=== PATIENT | male | born 1950 | race Caucasian/White ===

== ENCOUNTER 2024-07-14 08:11 | Inpatient (IN) | payer OTHER ==
[~2024-07-14] VITALS: Ht 177.8 cm; Wt 67.0 kg
[2024-07-14] VITALS (22 sets, daily range): BP systolic 105–142; BP diastolic 65–100
[2024-07-14] MEDS ORDERED: LACTATED RINGER'S 1,000 ML BAG IV ONE (08:24)
[2024-07-14] MEDS ORDERED: ROCURONIUM BROMIDE 10 MG/ML 5ML VIAL IV ONE (08:24)
[2024-07-14] MEDS ORDERED: SUGAMMADEX SODIUM 200 MG/2 ML SDV IV ONE (08:24)
[2024-07-14] MEDS ORDERED: KETOROLAC TROMETHAMINE 30 MG/ML SDV IV ONE (08:24)
[2024-07-14] MEDS ORDERED: SUCCINYLCHOLINE CHLORIDE 20 MG/ML 10ML VIAL IV ONE ×2 (08:24)
[2024-07-14] MEDS ORDERED: PROPOFOL 200 MG/20 ML VIAL IV ONE (08:24)
[2024-07-14] MEDS ORDERED: MORPHINE SULFATE 4 MG/ML VIAL IV ONE (08:30)
[2024-07-14] MEDS ORDERED: SODIUM CHLORIDE 0.9% 1,000 ML IV ONE (08:30)
[2024-07-14] MEDS ORDERED: ONDANSETRON HCl 4 MG/2 ML SDV IV ONE (08:30)
[2024-07-14 08:51] LABS: BASO% 0.2 % (0-3); HEMATOCRIT 48.4 % (39.0-50.0); HEMOGLOBIN 15.8 g/dl (14.0-18.0); IMMATURE GRANULOCYTES 0.3 % (0.0-5.0); LYMPH% 22.2 % (15-41); MEAN CELL VOLUME 100.2 fL CALC (80.0-100.0); MEAN CORPUSCULAR HGB 32.7 pG CALC (26.0-32.0); MEAN CORPUSCULAR HGB CONC 32.6 g/dL CAL (32.0-36.0); MONO% 11.2 % (2-13); NEUT# 6.46 thou/uL (1.82-7.42); NEUT% 65.1 % (42-76); RED BLOOD COUNT 4.83 mill/uL (4.70-6.10); RED CELL DISTRI WIDTH 12.3 % (11.5-15.5)
[2024-07-14] MEDS ORDERED: CIPROFLOXACN500 MG PO (09:02)
[2024-07-14] MEDS ORDERED: METRONIDAZOLE500 MG PO (09:03)
[2024-07-14 09:16] LABS: ALBUMIN 4.1 g/dL (3.2-5.0); CREATININE 0.9 mg/dL (0.7-1.3); POTASSIUM 3.8 mmol/l (3.5-5.1); TOTAL PROTEIN 6.8 g/dL (6.3-8.2)
[2024-07-14] MEDS ORDERED: HYDROmorphone HCL 2 MG/AMP IV ONE ×2 (10:05→11:10)
[2024-07-14] MEDS ORDERED: SODIUM CHLORIDE 0.9% 10 ML SYR ONE (12:08)
[2024-07-14] MEDS ORDERED: LACTATED RINGER'S 1,000 ML IV ONE ×3 (12:08→16:47)
[2024-07-14] MEDS ORDERED: FAMOTIDINE 10MG/ML 2ML SDV IV ONE (12:08)
[2024-07-14 12:14] LABS: URINE BILIRUBIN - DIPSTICK Negative (NEGATIVE); URINE BLOOD DIPSTICK Negative (NEGATIVE); URINE COLOR Yellow; URINE GLUCOSE - DIPSTICK Negative (NEGATIVE); URINE KETONE 80 mg/dL (NEGATIVE); URINE LEUK ESTERASE Negative (NEGATIVE); URINE NITRITE - DIPSTICK Negative (Negative); URINE PH 7.5 (4.5-8.0); URINE PROTEIN - DIPSTICK Trace mg/dL (NEG-TRACE); URINE UROBILINOGEN - DIPSTICK 0.2 E.U./dL (0.2)
[2024-07-14] MEDS ORDERED: HYDROmorphone HCL 2 MG/AMP IV PRN (12:55)
[2024-07-14] MEDS ORDERED: ONDANSETRON HCl 4 MG/2 ML SDV IV PRN (12:55)
[2024-07-14] MEDS ORDERED: ACETAMINOPHEN 650 MG SUP PR PRN (12:55)
[2024-07-14] MEDS ORDERED: BENZOCAINE-MENTHOL (MOUTH-THRO 1 LOZ LOZ MT PRN (12:55)
[2024-07-14] MEDS ORDERED: DEXTROSE IN LACTATED RINGERS 1,000 ML IV PRN (13:00)
[2024-07-14] MEDS ORDERED: ACETAMINOPHEN 100 ML IV ONE (16:07)
[2024-07-14] MEDS ORDERED: PIPERACILLIN Sodium-Tazobactam 3.375 GM in SODIUM CHLORIDE 0.9% 100 ML IV SCH (18:00)
[2024-07-15] VITALS (8 sets, daily range): BP systolic 93–122; BP diastolic 62–77
[2024-07-15 05:21] LABS: BASO% 0.1 % (0-3); EOS% 1.1 % (0-8); IMMATURE GRANULOCYTES 0.1 % (0.0-5.0); LYMPH% 16.4 % (15-41); MEAN CELL VOLUME 102.8 fL CALC (80.0-100.0); MEAN CORPUSCULAR HGB 33.2 pG CALC (26.0-32.0); MEAN CORPUSCULAR HGB CONC 32.3 g/dL CAL (32.0-36.0); MONO% 5.4 % (2-13); NEUT# 6.11 thou/uL (1.82-7.42); NEUT% 76.9 % (42-76); RED BLOOD COUNT 3.95 mill/uL (4.70-6.10); RED CELL DISTRI WIDTH 12.7 % (11.5-15.5)
[2024-07-15 05:24] LABS: HEMATOCRIT 40.6 % (39.0-50.0); HEMOGLOBIN 13.1 g/dl (14.0-18.0)
[2024-07-15 06:04] LABS: BILIRUBIN, TOTAL 0.9 mg/dL (0.2-1.3); CREATININE 0.8 mg/dL (0.7-1.3); POTASSIUM 3.5 mmol/l (3.5-5.1)
[2024-07-15 06:10] LABS: ALBUMIN 2.4 g/dL (3.2-5.0); TOTAL PROTEIN 4.5 g/dL (6.3-8.2)
[2024-07-15] MEDS ORDERED: LACTATED RINGER'S 1,000 ML IV PRN (09:50)
[2024-07-16] VITALS (11 sets, daily range): BP systolic 116–132; BP diastolic 67–82
[2024-07-16] MEDS ORDERED: Pantoprazole Sodium 40 MG VIAL (Protonix) IV SCH (11:00)
[2024-07-16 11:14] LABS: HEMOGLOBIN 11.3 g/dl (14.0-18.0); MEAN CELL VOLUME 103.6 fL CALC (80.0-100.0); MEAN CORPUSCULAR HGB 33.4 pG CALC (26.0-32.0); MEAN CORPUSCULAR HGB CONC 32.3 g/dL CAL (32.0-36.0); RED BLOOD COUNT 3.38 mill/uL (4.70-6.10); RED CELL DISTRI WIDTH 12.7 % (11.5-15.5)
[2024-07-16] MEDS ORDERED: ENOXAPARIN SODIUM 40 MG/0.4 ML SYR SC SCH (21:00)
[2024-07-17] VITALS (8 sets, daily range): BP systolic 126–139; BP diastolic 71–81
[2024-07-17 05:09] LABS: BASO% 0.1 % (0-3); EOS% 5.5 % (0-8); HEMATOCRIT 29.9 % (39.0-50.0); HEMOGLOBIN 9.8 g/dl (14.0-18.0); IMMATURE GRANULOCYTES 0.1 % (0.0-5.0); LYMPH% 18.7 % (15-41); MEAN CELL VOLUME 103.5 fL CALC (80.0-100.0); MEAN CORPUSCULAR HGB 33.9 pG CALC (26.0-32.0); MEAN CORPUSCULAR HGB CONC 32.8 g/dL CAL (32.0-36.0); MONO% 8.6 % (2-13); NEUT# 5.12 thou/uL (1.82-7.42); RED BLOOD COUNT 2.89 mill/uL (4.70-6.10); RED CELL DISTRI WIDTH 12.7 % (11.5-15.5)
[2024-07-17 05:19] LABS: ALBUMIN 2.7 g/dL (3.2-5.0); BILIRUBIN, TOTAL 0.7 mg/dL (0.2-1.3); CREATININE 0.8 mg/dL (0.7-1.3); POTASSIUM 3.1 mmol/l (3.5-5.1)
[2024-07-17] MEDS ORDERED: PERCOCET 5/325M1 TAB PO (12:29)
[2024-07-17 12:49] LABS: HEMATOCRIT 32.1 % (39.0-50.0); HEMOGLOBIN 10.2 g/dl (14.0-18.0)
[2024-07-17] MEDS ORDERED: oxyCODONE 5MG/ ACETAMINOPHEN 325MG TAB PO PRN (14:50)
[2024-07-17] MEDS ORDERED: POTASSIUM CHLORIDE 20MEQ 100 ML IV SCH (15:00)
[2024-07-17 18:30] LABS: HEMATOCRIT 31.5 % (39.0-50.0); HEMOGLOBIN 10.1 g/dl (14.0-18.0)
[2024-07-18] VITALS: BP 139/81
[2024-07-18 04:00] VITALS: BP 142/75
[2024-07-18 04:04] VITALS: BP 142/75
[2024-07-18 05:31] LABS: BASO% 0.3 % (0-3); EOS% 7.1 % (0-8); HEMATOCRIT 30.8 % (39.0-50.0); HEMOGLOBIN 10.2 g/dl (14.0-18.0); IMMATURE GRANULOCYTES 0.3 % (0.0-5.0); LYMPH% 19.5 % (15-41); MEAN CORPUSCULAR HGB 33.4 pG CALC (26.0-32.0); MEAN CORPUSCULAR HGB CONC 33.1 g/dL CAL (32.0-36.0); MONO% 10.1 % (2-13); NEUT# 3.72 thou/uL (1.82-7.42); NEUT% 62.7 % (42-76); RED BLOOD COUNT 3.05 mill/uL (4.70-6.10); RED CELL DISTRI WIDTH 12.3 % (11.5-15.5)
[2024-07-18 05:48] LABS: ALBUMIN 2.7 g/dL (3.2-5.0); BILIRUBIN, TOTAL 0.9 mg/dL (0.2-1.3); CREATININE 0.7 mg/dL (0.7-1.3); POTASSIUM 3.5 mmol/l (3.5-5.1)
[2024-07-18 06:42] VITALS: BP 137/75
[2024-07-18 08:02] VITALS: BP 137/75
[2024-07-18 10:47] VITALS: BP 145/82
== END 2024-07-18 14:19 | disposition home or self-care (01) | DRG 330 ==
LOC: ED 08:11 → ED-I 10:40 → ED 10:52 → MS2 10:53
PROVIDERS: Family Medicine; Nurse Practitioner Family; ADMIT Surgery; ATTEND Surgery
PROC: 0DBN0ZZ Excision of Sigmoid Colon, Open Approach (ICD-10-PCS; principal; 2024-07-14)
PROC: 0D1M0Z4 Bypass Descending Colon to Cutaneous, Open Approach (ICD-10-PCS; 2024-07-14)
PROC: 0D980ZZ Drainage of Small Intestine, Open Approach (ICD-10-PCS; 2024-07-14)
PROC: 0DJD8ZZ Inspection of Lower Intestinal Tract, Via Natural or Artificial Opening Endoscopic (ICD-10-PCS; 2024-07-14)
DX: C18.7 Malignant neoplasm of sigmoid colon (principal); K56.699 Other intestinal obstruction unspecified as to partial versus complete obstruction; Z87.19 Personal history of other diseases of the digestive system
CPT/HCPCS: J0131; J0690; J1171; J1650; J2405; J2470; J2543; J3480; Q9967